=== PATIENT | female | born 2000 | race Caucasian/White ===

== ENCOUNTER 2024-07-19 14:33 | Emergency (ER) | payer OTHER, SELFPAY ==
--- NOTE | 2024-07-19 14:39 | ED.URI ---
HPI - URI/Sore Throat General Chief Complaint: Upper Respiratory Infection Stated Complaint: sore throat,no energy Time Seen by Provider: 07/19/24 14:39 Source: patient Mode of arrival: ambulatory Limitations: no limitations History of Present Illness HPI Narrative: Patient is a 24-year-old female who presents with sore throat, no energy, body aches since Friday. Patient has taken ibuprofen. Denies any fever, chills, nausea, vomiting, diarrhea. History of tonsillectomy Related Data Home Medications Medication Instructions Recorded Confirmed desogestrel 0.15 mg-ethinyl 1 tablet PO QAM 07/19/24 07/19/24 estradiol 0.03 mg tablet (Isibloom) fluoxetine 40 mg capsule 40 mg PO DAILY 07/19/24 07/19/24 guanfacine 1 mg tablet 1 mg PO DAILY 07/19/24 07/19/24 prazosin 2 mg capsule 4 mg PO QHS 07/19/24 07/19/24 trazodone 50 mg tablet 50 mg PO QHS 07/19/24 07/19/24 Allergies Allergy/AdvReac Type Severity Reaction Status Date / Time diphenhydramine Allergy Gastrointestinal Verified 07/19/24 14:54 [From Benadryl] Upset gluten Allergy Diarrhea Verified 07/19/24 14:54 Review of Systems Review of Systems: All systems reviewed & are unremarkable except as noted in HPI and below Constitutional: Constitutional: Reports body ache(s), Denies chills, Denies fatigue, Denies fever(s), Denies headache(s), Denies malaise and Denies weakness Eyes: Eyes: Denies blurry vision, Denies itchy eyes and Denies loss of vision ENT: Denies otalgia, Denies headache(s), Denies nasal congestion, Denies sinus pain and Reports sore throat Cardiovascular: Cardiovascular: Denies chest pain, Denies irregular heart rhythm and Denies dyspnea Respiratory: Respiratory: Denies cough, Denies dyspnea and Denies snoring Gastrointestinal: Gastrointestinal: Denies abdominal pain, Denies diarrhea, Denies nausea and Denies vomiting Musculoskeletal: Musculoskeletal: Denies back pain, Denies myalgias and Denies arthralgias Integumentary/Breasts: Skin/Breast: Denies pruritus and Denies rash Neurologic: Denies headache(s), Denies loss of vision and Denies weakness Psychiatric: Psychiatric: Reports no additional psychiatric complaints Endocrine: Endocrine: Denies fatigue Allergic/Immunologic: Allergic/Immunologic: Denies itchy eyes PMFSH Comments At time of signature, agree with nursing past medical, surgical, social and family history. There is no relevant family history pertinent to the presenting complaint. Exam Const: General: cooperative, healthy appearing, comfortable, no acute distress and well nourished Nutritional Appearance: well nourished Orientation/consciousness: patient oriented x3 Limitations: no limitations HENMT: Head: normal to inspection, normocephalic and atraumatic Ears: hearing grossly normal bilaterally, external ears normal, TM's normal bilaterally, EAC's normal and no periauricular adenopathy Face/Nose/Sinus: Normal external nose present, Abnormal mucous membranes and turbinates present erythematous bilateral and diffuse, normal facial exam, sinuses nontender and face symmetric Face and sinus: normal facial exam, sinuses nontender and face symmetric Mouth: Yes Normal oral and palatal mucosa present, Yes lip normal, Yes tongue normal, Yes Normal salivary glands and ducts present, Yes oropharynx normal and Yes moist mucous membranes Teeth and gingiva: dentition normal Throat: uvula midline, posterior oropharynx abnormal erythema, postnasal drainage and tonsils absent Eyes: General: appearance normal, both eyes and all related structures Alignment and Position: alignment normal and position normal Periorbital: periorbital findings normal Eyelids: eyelids normal Pupils: Equal, round and reactive pupils present Neck: Neck: normal visual inspection, full ROM, no lymphadenopathy and supple Chest: Chest palpation & inspection: normal inspection of the chest and normal palpation of entire chest wall Resp: Effort & Inspection: normal respiratory effort and able to speak in complete sentences Auscultation: clear to auscultation bilaterally, no crackles, no rales, no rhonchi and no wheezes Cardio: Rate: regular rate Rhythm: regular rhythm Heart sounds: S1 normal heart sound present and S2 normal heart sound present GI: Inspection: normal to inspection Skin: General skin exam: normal color and no rashes or lesions noted Neuro: General: patient oriented x3 and moves all extremities Cranial nerves: Yes Equal, round and reactive pupils present Speech: normal speech Gait exam (Neuro): Normal gait present Extrem: General: normal to inspection, full ROM and no edema Psych: Appearance: grossly normal and well kempt Mental Status: mental status grossly normal Speech and movement: Normal speech and movement present Affect: normal affect Attitude: cooperative Thought process: Normal thought process present Course Course Emergency Course: Patient is aware of diagnosis, understands and agrees to treatment plan. Anticipatory guidance given. Patient agrees to follow-up as directed and is aware of reasons to seek care at the emergency department. Portions of this record may have been created with voice recognition software Level of Care: Express Care Visit Vital Signs Vital signs: Vital Signs Temperature 36.7 C 07/19/24 14:53 Pulse Rate 98 07/19/24 14:53 Respiratory Rate 20 07/19/24 14:53 Blood Pressure 113/76 07/19/24 14:53 Pulse Oximetry 100 07/19/24 14:53 Temperature 36.7 C 07/19/24 14:55 Pulse Rate 98 07/19/24 14:55 Respiratory Rate 20 07/19/24 14:55 Blood Pressure 113/76 07/19/24 14:55 Pulse Oximetry 100 07/19/24 14:55 Reviewed MDM - URI/Sore Throat MDM Narrative Medical decision making narrative: Patient diagnosed with strep throat. Antibiotics given Discharge instructions reviewed with patient, as well as provided in writing per nursing staff. The instructions also include specific and strict return/GO TO THE ER as well as f/u information. All questions have been answered, and the patient deny any further questions with discharge and discharge plan. Differential diagnosis considered: Merchant virus, strep pharyngitis, allergic rhinitis, upper respiratory tract infection, sinusitis, rhinosinusitis, nasopharyngitis. viral pharyngitis, otitis media, otitis externa, otitis effusion, foreign body, cerumen impaction, viral syndrome, and influenza.? Exam findings show no acute concerns or changes; patient is non-toxic appearing and is in no distress.? Patient is appropriate for outpatient treatment and follow-up.? Medical Records Attestation: I reviewed the patient's medical records. Lab Data Attestation: I reviewed the patient's lab results. Labs: Lab Results 07/19/24 07/19/24 Range/Units 15:07 15:17 POC Influenza A Ag Negative (Negative) POC Influenza B Ag Negative (Negative) POC SARS CoV-2 Ag Negative (Negative) POC Grp A Strep Screen Positive (Negative) Discharge Plan Discharge Clinical Impression: Strep throat Patient Disposition: Home, Self-Care Condition: Stable Instructions: Strep Throat (ED) Additional Instructions: Your rapid strep swab was positive today at [facility]. After 24 hours on antibiotics throw tooth brush away and start using a new one. Wash your sheets and cup/water bottle that is used daily. Do not share drinks. Take Motrin alternating with Tylenol for pain and fever alternating every 4 hours. Increase fluids, avoid caffeine. Other symptomatic treatments include: -Antihistamine medication such as Benadryl at night and Zyrtec/Claritin/Tiny during the day can help improve symptoms. -Use Flonase twice a day for 5 days then daily to help reduce the inflammation and dry up your sinuses. -You can also use Sudafed or Mucinex. Be sure to drink plenty of water with these medications at least 8 ounces with every dose and it is important to drink 8 to 10 glasses of water per day. Water is a natural decongestant -Eat and drink things that are easy to swallow, like tea or soup, or popsicles. -Oral rinses such as: Salt water gargles and/or may use topical anesthetic (eg. Chloraseptic spray) or lozenges to relieve dryness or throat pain). -Frequent hand washing or hand vice president of [employer] is one of the best ways to prevent spread of infection. -Using a vaporizer or humidifier at night will also help thin secretions and help with coughing up phlegm. -Follow up with primary care provider in 3-5 days if condition is not improving - For new or worsening symptoms go directly to the nearest ER Prescriptions: New amoxicillin 500 mg capsule 500 mg PO BID 10 Days Qty: 20 0RF No Action fluoxetine 40 mg capsule 40 mg PO DAILY desogestrel-ethinyl estradiol [Isibloom] 0.15-0.03 mg tablet 1 tablet PO QAM trazodone 50 mg tablet 50 mg PO QHS guanfacine 1 mg tablet 1 mg PO DAILY prazosin 2 mg capsule 4 mg PO QHS Follow-up/Referrals: Filippo,KENN Pillai [Primary Care Provider] - 3 Days Stand Alone Forms: Work/School Release IP Time of Disposition: 15:21
[2024-07-19 14:53] VITALS: BP 113/76; PULSE 98; RESP 20; TEMP 36.7; O2SAT 100
[2024-07-19 14:55] VITALS: BP 113/76; PULSE 98; RESP 20; TEMP 36.7; O2SAT 100
[2024-07-19 15:08] LABS: EDSTREPNEGPOS1 Positive (Negative)
[2024-07-19 15:20] LABS: EDCOVIDSCREEN Negative (Negative); EDINFLUASCREEN Negative (Negative); EDINFLUBSCREEN Negative (Negative)
== END 2024-07-19 15:25 | disposition home or self-care (01) ==
PROVIDERS: Emergency Provider Nurse Practitioner Family; PCP Physician Assistant
DX: J02.0 Streptococcal pharyngitis (principal); Z20.822 Contact with and (suspected) exposure to COVID-19; F41.9 Anxiety disorder, unspecified; F32.A Depression, unspecified; F43.10 Post-traumatic stress disorder, unspecified
CPT/HCPCS: 87426; 87804; 87880; 99213; G0463

== ENCOUNTER 2024-09-13 09:39 | Emergency (ER) | payer OTHER, SELFPAY ==
[2024-09-13 09:58] VITALS: BP 88/43; PULSE 103; RESP 16; TEMP 35.9; O2SAT 99
--- NOTE | 2024-09-13 09:58 | ED_ITS ---
HPI - General Adult General Chief complaint: Dizziness Stated complaint: Sore Throat Time Seen by Provider: 09/13/24 09:50 Source: patient, RN notes reviewed and old records reviewed Mode of arrival: ambulatory Limitations: no limitations History of Present Illness HPI narrative: 24-year-old female presents to the [facility] with increased dizziness, sore throat, body aches and generalized fatigue. Patient states that she does get dizzy with changing positions on a regular basis but this is worse than normal. On arrival patient's blood pressure is low, patient is tachycardic. Patient is pale Symptoms started just after midnight this morning Treatments prior to arrival: none Related Data Home Medications ?Medication ?Instructions ?Recorded ?Confirmed ?Last Taken ?Type desogestrel 0.15 mg-ethinyl 1 tablet PO QAM 07/19/24 09/13/24 Unknown History estradiol 0.03 mg tablet (Isibloom) fluoxetine 40 mg capsule 40 mg PO DAILY 07/19/24 09/13/24 Unknown History guanfacine 1 mg tablet 1 mg PO DAILY 07/19/24 09/13/24 Unknown History prazosin 2 mg capsule 4 mg PO QHS 07/19/24 09/13/24 Unknown History trazodone 50 mg tablet 50 mg PO QHS 07/19/24 09/13/24 Unknown History Allergies Allergy/AdvReac Type Severity Reaction Status Date / Time diphenhydramine (From Allergy Gastrointestinal Verified 09/13/24 09:57 Benadryl) Upset gluten Allergy Diarrhea Verified 09/13/24 09:57 Review of Systems Review of Systems: All systems reviewed & are unremarkable except as noted in HPI and below Constitutional: Constitutional: Reports as per HPI ENT: Reports as per HPI Cardiovascular: Cardiovascular: Reports no additional cardiovascular complaints, Denies chest pain and Denies dyspnea Respiratory: Respiratory: Reports no additional respiratory complaints, Denies chest congestion, Denies cough and Denies dyspnea Musculoskeletal: Musculoskeletal: Reports no additional musculoskeletal complaints Integumentary/Breasts: Skin/Breast: Reports system reviewed and no additional complaints, except as docu PMF Comments At the time of my signature, I reviewed and agree with the nursing past medical, surgical, social, and family history. There is no relevant family history pertinent to the patient complaint. Exam Const: General: cooperative, no acute distress, well developed, alert, ill appearing, tired appearing, uncomfortable and well nourished Nutritional Appearance: well nourished Orientation/consciousness: patient oriented x3 Limitations: no limitations HENMT: Head: normal to inspection Ears: hearing grossly normal bilaterally, external ears normal, TM's normal bilaterally, EAC's normal, mastoids normal and no periauricular adenopathy Face/Nose/Sinus: normal facial exam and face symmetric Face and sinus: normal facial exam and face symmetric Mouth: Yes dry mucous membranes Throat: posterior oropharynx normal, tonsils normal, uvula midline and no uvular edema Eyes: General: appearance normal, both eyes and all related structures Neck: Neck: normal visual inspection, full ROM, no lymphadenopathy and no meningeal signs Chest: Chest palpation & inspection: normal inspection of the chest Resp: Effort & Inspection: normal respiratory effort and able to speak in complete sentences Auscultation: clear to auscultation bilaterally, no crackles, no rales, no rhonchi and no wheezes Cardio: Rate: regular rate Skin: General skin exam: normal color and no rashes or lesions noted Neuro: General: patient oriented x3, moves all extremities, no meningeal signs and no focal motor deficits Cognition (Neuro): normal cognition Speech: normal speech Extrem: General: normal to inspection, full ROM, capillary refill normal and normal gait Psych: Appearance: grossly normal and well kempt Mental Status: mental status grossly normal Speech and movement: Normal speech and movement present and Clear speech present Affect: normal affect Attitude: cooperative Course Course Level of Care: Express Care Visit Vital Signs Vital signs: Vital Signs Temperature 96.6 F L 09/13/24 09:58 Pulse Rate 103 H 09/13/24 09:58 Respiratory Rate 16 09/13/24 09:58 Blood Pressure 88/43 L 09/13/24 09:58 Pulse Oximetry 99 09/13/24 09:58 Oxygen Delivery Room Air 09/13/24 09:58 Temperature 96.6 F L 09/13/24 09:58 Pulse Rate 103 H 09/13/24 09:58 Respiratory Rate 16 09/13/24 09:58 Blood Pressure 90/42 L 09/13/24 10:05 Pulse Oximetry 99 09/13/24 09:58 Oxygen Delivery Room Air 09/13/24 09:58 Reviewed Transfer Transfered to: [facility] (Per patient request) Transportation: Other (Declined EMS, has having her boyfriend bring her to the ER) Transfer rationale: Patient looks acutely ill strep is negative blood pressures are low, tachycardic. Patient reports increased dizziness, unsteady gait Sending for higher level of care Accepting physician: Alisa Gusman Medical Decision Making MDM Narrative Medical decision making narrative: Patient sitting comfortably in exam room. Nontoxic, vitals stable. Patient in no acute distress Patient presents for dizziness, fatigue, sore throat Strep test negative Concern for dehydration, low blood pressure sending for higher level care Transfer instructions reviewed with patient go directly to the ER. Do not eat or drink until cleared by ER provider. Patient declined EMS, wants her boyfriend to drive her All questions have been answered, and the patient deny any further questions . Some parts of this dictation were generated by voice recognition software and may contain typographical and/or grammatical inaccuracies. Differential Diagnosis Differential Diagnosis: Dehydration, strep, URI, COVID, flu Medical Records Medical records reviewed: Yes I reviewed the external patient's medical records. Vital Signs Vital Signs: Vital Signs Temperature 96.6 F L 09/13/24 09:58 Pulse Rate 103 H 09/13/24 09:58 Respiratory Rate 16 09/13/24 09:58 Blood Pressure 88/43 L 09/13/24 09:58 Pulse Oximetry 99 09/13/24 09:58 Oxygen Delivery Room Air 09/13/24 09:58 Temperature 96.6 F L 09/13/24 09:58 Pulse Rate 103 H 09/13/24 09:58 Respiratory Rate 16 09/13/24 09:58 Blood Pressure 90/42 L 09/13/24 10:05 Pulse Oximetry 99 09/13/24 09:58 Oxygen Delivery Room Air 09/13/24 09:58 Reviewed Lab Data Lab results reviewed: Yes I reviewed the patient's lab results. Labs: Lab Results 09/13/24 Range/Units 10:00 POC Grp A Strep Screen Negative (Negative) Reviewed Critical Care Time Critical Care Time Critical Care Time: No Discharge Plan Discharge Clinical Impression: Dizziness, Pharyngitis, Blood pressure abnormally low Patient Disposition: Acute Care Hospital Condition: Guarded Prognosis Patient Language: Danish Prescriptions: No Action fluoxetine 40 mg capsule 40 mg PO DAILY desogestrel-ethinyl estradiol [Isibloom] 0.15-0.03 mg tablet 1 tablet PO QAM trazodone 50 mg tablet 50 mg PO QHS guanfacine 1 mg tablet 1 mg PO DAILY prazosin 2 mg capsule 4 mg PO QHS amoxicillin 500 mg capsule 500 mg PO BID 10 Days Qty: 20 0RF Follow-up/Referrals: Filippo,KENN Pillai [Primary Care Provider] -
[2024-09-13 10:05] VITALS: BP 90/42
[2024-09-13 10:22] LABS: EDSTREPNEGPOS1 Negative (Negative)
== END 2024-09-13 10:05 | disposition short-term general hospital (02) ==
PROVIDERS: Emergency Provider Nurse Practitioner; PCP Physician Assistant
DX: R42 Dizziness and giddiness (principal); J02.9 Acute pharyngitis, unspecified; R03.1 Nonspecific low blood-pressure reading; Z79.899 Other long term (current) drug therapy
CPT/HCPCS: 87880; 99212; G0463